=== PATIENT | male | born 1980 | race Caucasian/White ===

== ENCOUNTER 2016-08-04 15:37 | Emergency (ER) | payer SELFPAY ==
[~2016-08-04] VITALS: Ht 182.9 cm; Wt 76.0 kg
[2016-08-04 15:45] VITALS: BP 128/82; PULSE 88; RESP 15; TEMP 97.9; O2SAT 99
--- NOTE | 2016-08-04 15:47 | PD ---
HPI Chief Complaint: OD/ Ingestion Time Seen by Provider: 15:40 Travel History International Travel<30 days: No Contact w/Intl Traveler<30days: No Traveled to known affect area: No History of Present Illness HPI This is a 36-year-old male who presents via EMS for evaluation of overdose. The patient's reports that he is at a bar today, he drank 2 beers and had a Vinh and Coke mixed drink. He was stocking someone and he brought a pill which he thought was a oxycodone pill from this person. He took the pill and went to his friend's house and per EMS the patient was found in the bathroom apneic, pinpoint pupils, they gave him 0.4 mg of IV Narcan with good response, now alert and oriented 3. The patient reports that he feels good, he says that his was unintentional. He reports that he occasionally takes oxycodone which he buys on the street for chronic lower back pain. He only does it about once a month. He was recently prescribed ibuprofen for his lower back pain as well. He denies any IV drug abuse. He has no complaints at this time. [facility] Past Medical History Narrative Medical Chronic lower back pain Social History Alcohol Use: Yes Tobacco Use: Yes Allergies-Medications (Allergen,Severity, Reaction): Coded Allergies: No Known Allergies (Unverified , 08/04/16) Review of Systems Except as stated in HPI: all other systems reviewed are Neg Physical Exam Narrative GENERAL: Well-developed well-nourished male in no acute distress answering questions appropriately SKIN: Warm and dry. HEAD: Atraumatic. Normocephalic. EYES: Pupils equal and round reactive to light extraocular muscles are intact. No scleral icterus. No injection or drainage. ENT: No nasal bleeding or discharge. Mucous membranes pink and moist. NECK: Trachea midline. No JVD. CARDIOVASCULAR: Regular rate and rhythm. No murmur appreciated. RESPIRATORY: No accessory muscle use. Clear to auscultation. Breath sounds equal bilaterally. GASTROINTESTINAL: Abdomen soft, non-tender, nondistended. Hepatic and splenic margins not palpable. MUSCULOSKELETAL: No obvious deformities. No clubbing. No cyanosis. No edema. NEUROLOGICAL: Awake and alert. No obvious cranial nerve deficits. Motor grossly within normal limits. Normal speech. Data Data Last Documented VS Vital Signs Date Time Temp Pulse Resp B/P Pulse Ox O2 Delivery O2 Flow Rate FiO2 08/04/16 15:45 97.9 88 15 128/82 99 Room Air Orders Electrocardiogram (08/04/16 15:48) Complete Blood Count With Diff (08/04/16 15:48) Comprehensive Metabolic Panel (08/04/16 15:48) Chest, Single Ap (08/04/16 15:48) Iv Access Insert/Monitor (08/04/16 15:48) Ecg Monitoring (08/04/16 15:48) Oximetry (08/04/16 15:48) Sodium Chloride 0.9% Flush (Ns Flush) (08/04/16 16:00) Drug Screen, Random Urine (08/04/16 15:48) Alcohol (Ethanol) (08/04/16 15:48) Salicylates (Aspirin) (08/04/16 15:48) Tylenol (Acetaminophen) (08/04/16 15:48) Labs Laboratory Tests Test 08/04/16 16:10 White Blood Count 10.6 TH/MM3 Red Blood Count 4.54 MIL/MM3 Hemoglobin 15.1 GM/DL Hematocrit 43.5 % Mean Corpuscular Volume 96.0 FL Mean Corpuscular Hemoglobin 33.2 PG Mean Corpuscular Hemoglobin 34.6 % Concent Red Cell Distribution Width 13.1 % Platelet Count 279 TH/MM3 Mean Platelet Volume 7.4 FL Neutrophils (%) (Auto) 65.0 % Lymphocytes (%) (Auto) 26.2 % Monocytes (%) (Auto) 7.8 % Eosinophils (%) (Auto) 0.4 % Basophils (%) (Auto) 0.6 % Neutrophils # (Auto) 6.9 TH/MM3 Lymphocytes # (Auto) 2.8 TH/MM3 Monocytes # (Auto) 0.8 TH/MM3 Eosinophils # (Auto) 0.0 TH/MM3 Basophils # (Auto) 0.1 TH/MM3 CBC Comment DIFF FINAL Differential Comment Sodium Level 137 MEQ/L Potassium Level 3.5 MEQ/L Chloride Level 103 MEQ/L Carbon Dioxide Level 24.5 MEQ/L Anion Gap 10 MEQ/L Blood Urea Nitrogen 8 MG/DL Creatinine 1.08 MG/DL Estimat Glomerular Filtration 78 ML/MIN Rate Random Glucose 137 MG/DL Calcium Level 8.5 MG/DL Total Bilirubin 0.4 MG/DL Aspartate Amino Transf 23 U/L (AST/SGOT) Alanine Aminotransferase 52 U/L (ALT/SGPT) Alkaline Phosphatase 72 U/L Total Protein 7.3 GM/DL Albumin 4.0 GM/DL Salicylates Level 4.0 MG/DL Urine Opiates Screen NEG Acetaminophen Level LESS THAN 2.0 MCG/ML Urine Barbiturates Screen NEG Urine Amphetamines Screen POS Urine Benzodiazepines Screen NEG Urine Cocaine Screen NEG Urine Cannabinoids Screen NEG Ethyl Alcohol Level 145 MG/DL MDM Medical Decision Making Medical Screen Exam Complete: Yes Emergency Medical Condition: Yes Medical Record Reviewed: Yes Interpretation(s) EKG sinus rhythm, some ST elevation in the inferior leads, likely early repolarization, no reciprocal changes, reviewed by Dr. Bhakta. Drug screen positive for amphetamines otherwise unremarkable CBC unremarkable Salicylates normal Differential Diagnosis Opiate overdose, respiratory depression, intentional overdose, polysubstance abuse Narrative Course 36-year-old male presents after taking a unknown substance in pill form and being found in the bathroom apneic and unresponsive. He received 0.4 mg of Narcan and is been awake and alert since then. He reports that he feels fine right now, somewhat embarrassed by the situation. He does not take illicit drugs on a regular basis, he reports maybe once a month he by an oxycodone based medication on the street for chronic back pain. On examination he is awake, alert, responding to questions and commands appropriately. We will monitor him for some time for any additional evidence of respiratory depression. Lab work, chest x-ray and EKG will be obtained. Discussed the case and findings with Dr. Bhakta who agrees with plan of care. The patient has been monitored for 2 hours with no additional symptomology. Still pending some lab work the patient would like to leave AMA because his ride to [place] here and he absolutely does not want to miss his ride. He continues to be asymptomatic and is happy with the care that he has received he just does not want to stay any longer. I explained that ideally we would observe him for a few more hours and we're still waiting for some lab work and explained the risks of leaving AGAINST MEDICAL ADVICE and he verbalizes understanding his competent to make that decision. He understands that he can return at any time. AMA: The risks of leaving against medical advice without further evaluation treatment were discussed with the patient. These risks include respiratory depression, cognitive impairment or . The patient indicated understanding of these risks and appeared to have the capacity to make this decision. Procedures EKG Prior to Arrival: Yes Diagnosis Primary Impression: Opiate overdose Qualified Code: T40.601A - Opiate overdose, accidental or unintentional, initial encounter Additional Instructions: Follow-up with primary care physician. Return for any emergent medical conditions. Med/Other Pt SpecificInfo: No Change to Meds Disposition: 07 AGAINST MEDICAL ADVICE Condition: Stable Gerald Sandy Aug 04, 2016 15:47
[2016-08-04] MEDS ORDERED: SODIUM CHLORIDE 0.9% FLUSH 10 ML FLUSH IVF PRN (16:00)
--- NOTE | 2016-08-04 16:41 | RADRPT ---
EXAM DATE/TIME: 08/04/2016 15:55 [facility] COMPARISON: No previous studies available for comparison. INDICATIONS : Syncope. MEDICAL HISTORY : None. SURGICAL HISTORY : None. ENCOUNTER: Initial ACUITY: 1 day PAIN SCORE: 0/10 LOCATION: Bilateral chest FINDINGS: A single view of the chest demonstrates the lungs to be symmetrically aerated without evidence of mas s, infiltrate or effusion. The cardiomediastinal contours are unremarkable. Osseous structures are intact. CONCLUSION: No acute cardiopulmonary process. Elan Mcconnell MD on August 04, 2016 at 16:39 Board Certified Radiologist. This report was verified electronically.
[2016-08-04 16:42] LABS: AUTOMATED NEUTROPHIL # 6.9 TH/MM3 (1.8-7.7); BASOPHIL # 0.1 TH/MM3 (0-0.2); BASOPHIL % 0.6 % (0.0-2.0); EOSINOPHIL % 0.4 % (0.0-4.0); HEMATOCRIT 43.5 % (39.0-51.0); HEMO FLAGS DIFF FINAL; LYMPH % 26.2 % (9.0-44.0); LYMPHOCYTE # 2.8 TH/MM3 (1.0-4.8); MEAN CORPUSCULAR HEMOGLOBIN 33.2 PG (27.0-34.0); MEAN CORPUSCULAR HGB CONC 34.6 % (32.0-36.0); MONO % 7.8 % (0.0-8.0); PLATELET COUNT 279 TH/MM3 (150-450); RED BLOOD COUNT 4.54 MIL/MM3 (4.50-5.90); RED CELL DISTRIBUTION WIDTH 13.1 % (11.6-17.2); WHITE BLOOD COUNT 10.6 TH/MM3 (4.0-11.0)
[2016-08-04 16:54] LABS: AMPHETAMINE, URINE POS (NEG); BARBITURATES, URINE NEG (NEG); COCAINE, URINE NEG (NEG)
[2016-08-04 17:05] LABS: ACETAMINOPHEN LESS THAN 2.0 MCG/ML (10.0-30.0); ALT (GPT) 52 U/L (12-78); ANION GAP 10 MEQ/L (5-15); AST (GOT) 23 U/L (15-37); BICARBONATE 24.5 MEQ/L (21.0-32.0); BLOOD UREA NITROGEN 8 MG/DL (7-18); CHLORIDE 103 MEQ/L (98-107); GLOMERULAR FILTRATION RATE 78 ML/MIN (>89); POTASSIUM 3.5 MEQ/L (3.5-5.1); SODIUM (NA) 137 MEQ/L (136-145)
[2016-08-04 17:06] LABS: ALKALINE PHOSPHATASE 72 U/L (45-117); TOTAL BILIRUBIN ADULT 0.4 MG/DL (0.2-1.0)
--- NOTE | 2016-08-05 15:49 | EKG ---
Date Performed: 08/04/2016 Time Performed: 17:04:30 PTAGE: 36 years EKG: Sinus rhythm WITH SINUS ARRHYTHMIA POSSIBLE RIGHT VENTRICULAR CONDUCTION DELAY Diffuse ST segment elevation is pr esent, consider pericarditis Verses early repolarization. BORDERLINE ECG NO PREVIOUS TRACING DOCTOR: Javier Blas Interpretating Date/Time 08/05/2016 15:47:01
== END 2016-08-04 17:49 | disposition left against medical advice (07) ==
LOC: NEPA 15:37
DX: T40.601A Poisoning by unspecified narcotics, accidental (unintentional), initial encounter (principal); R94.31 Abnormal electrocardiogram [ECG] [EKG]; Z72.0 Tobacco use; Z87.39 Personal history of other diseases of the musculoskeletal system and connective tissue
CPT/HCPCS: 71010; 80053; 80307; 85025; 93005